=== PATIENT | male | born 1970 | race Asian ===

== ENCOUNTER → 2016-07-15 | Outpatient (CLI) | payer MEDICAID ==
--- NOTE | 2016-07-15 12:20 | US ---
Complete Abdominal Ultrasound CLINICAL HISTORY: 45-year-old male with abdominal pain. ICD 10 Diagnostic Code: R10.9. TECHNIQUE: A curvilinear 5 MHz transducer was used to sonographically evaluate the upper abdomen. Col or Doppler was used. COMPARISON STUDY: None. FINDINGS: The pancreatic contour is normal. The abdominal aorta is normal in size, and tapers normall y. The visualized IVC is normal in caliber. The hepatic vein trifurcation is normal. The main portal vein is patent. The liver is normal in size, measuring 12.1 cm along the right midaxillary line, and is diffusely echogenic consistent with fatty infiltration (steatosis). There is no focal hepatic mass . There is no intra or extrahepatic bile duct dilatation. The common bile duct measures 2.9 mm. The g allbladder is moderately distended. There are several tiny echogenic adherent mural wall projections, consistent with tiny polyps (cholesterolosis). The largest polyp measures 4.4 mm. There is no eviden ce of cholelithiasis, pericholecystic fluid, or sonographic Austin sign. The gallbladder wall thickne ss is 2.1 mm. The right and the left kidneys are normal in size, shape, and contour, with a normal re nal cortical thickness, and no focal renal mass or hydronephrosis. The right kidney measures 10.4 x 5 .5 x 5.2 cm, and the left kidney measures 10.4 x 4.8 x 6.2 cm. The spleen is normal in size and homog eneous in echotexture, measuring 10.4 x 4.6 x 7.9 cm. There is no ascites or pleural effusion. IMPRESSION: 1. Hepatic steatosis. 2. Gallbladder cholesterolosis, with the largest polyp measuring 4 mm; no further follow-up is necess bebeto given this small size. There is no convincing evidence of cholelithiasis, nor is there any cholec ystitis or bile duct dilatation.
== END ==
LOC: BRMIMAGING 11:06
PROVIDERS: ATTEND Registered Nurse
DX: K76.0 Fatty (change of) liver, not elsewhere classified (principal); K82.4 Cholesterolosis of gallbladder
CPT/HCPCS: 76700-PO